=== PATIENT | female | born 1940 | race Caucasian/White ===

== ENCOUNTER 2018-02-18 09:55 | Observation (INO) | payer MEDICARE ==
[2018-02-16 15:07] VITALS: BP 98/53
[2018-02-16 15:08] LABS: BASOPHILS % (AUTO) 0.7 % (0.0-5.0); EOSINOPHILS % (AUTO) 2.8 % (0.0-8.0); HEMATOCRIT 40.7 % (36-48); LYMPHOCYTES % (AUTO) 24.1 % (21.0-51.0); MEAN CORPUSCULAR HGB CONC 33.6 g/dL (32.0-36.0); MEAN CORPUSCULAR VOLUME 95.2 fL (79-99); MONOCYTES % (AUTO) 7.1 % (3.0-13.0); NEUTROPHILS % (AUTO) 65.3 % (40.0-77.0); PLATELET COUNT (AUTO) 252 K/uL (130-400); RED BLOOD CELL COUNT(AUTO) 4.28 MIL/uL (4.00-5.50); RED CELL DISTRIBUTION WIDTH 12.5 % (11.0-15.5)
[2018-02-16 15:20] LABS: INR 0.98 (0.85-1.15); PARTIAL THROMBOPLASTIN TIME 27.7 SEC (26.3-35.5); PROTHROMBIN TIME 10.3 SEC (9.6-11.6)
[2018-02-16 15:24] LABS: CREATININE 0.7 mg/dL (0.5-1.5); POTASSIUM 4.9 mmol/L (3.5-5.1)
[2018-02-18] VITALS (18 sets, daily range): BP systolic 82–123; BP diastolic 36–68
[~2018-02-18] VITALS: Ht 163.8 cm; Wt 52.5 kg
[~2018-02-18 09:55] MED LIST: APIX5TAB PO; FLEC50TA3 PO; LEVO25TA4 PO; LORA10TA7 PO; MULTIVITAMIN PO; SACC250C9 PO; SODIUM CHLORIDE 0.9% 1000ML 1,000 ML IV SCH; VERA120C2 PO
[2018-02-18] MEDS ORDERED: PHENYLEPHRINE HCL 10 MG/ML 1ML VIAL IV ONE (11:46)
[2018-02-18] MEDS ORDERED: SUCCINYLCHOLINE 200MG/10ML SYR ONE (11:47)
[2018-02-18] MEDS ORDERED: ROCURONIUM 10MG/1ML SYR 10 MG/ML ML ONE (11:47)
[2018-02-18] MEDS ORDERED: PROPOFOL 10 MG/ML 20ML VIAL IV ONE (11:47)
[2018-02-18] MEDS ORDERED: FENTANYL CITRATE PF 50 MCG/1 ML 5ML AMP IV ONE (11:48)
[2018-02-18] MEDS ORDERED: EPHEDRINE SULFATE 50 MG/ML AMPULE ONE (11:58)
[2018-02-18] MEDS ORDERED: LIDOCAINE HCL 2% 20ML ONE (12:21)
[2018-02-18] MEDS ORDERED: HEPARIN SODIUM 1000UNIT/ML 10ML VIAL ONE ×2 (12:21→12:29)
[2018-02-18] MEDS ORDERED: ONDANSETRON HCL 4 MG/2 ML VIAL ONE ×2 (12:29→15:28)
[2018-02-18] MEDS ORDERED: ISOPROTERENOL HCL 0.2 MG/ML AMP/VIAL/BAG ONE ×2 (15:06→15:17)
[2018-02-18] MEDS ORDERED: PROTAMINE SULFATE 10 MG/ML 25ML VIAL IV ONE (15:26)
[2018-02-18] MEDS ORDERED: LIDOCAINE PF 2% 5ML ABBOJECT ONE (15:46)
[2018-02-18] MEDS ORDERED: GLYCOPYRROLATE 1 MG/5 ML SYRINGE ONE (15:57)
[2018-02-18] MEDS ORDERED: PANT40TA25 PO (16:27)
[2018-02-18] MEDS: PANTOPRAZOLE SODIUM 40 MG TABLET.DR PO SCH (16:30)
[2018-02-18] MEDS: APIXABAN 5 MG TABLET PO SCH (22:39)
[2018-02-19 04:00] VITALS: BP 93/55
[2018-02-19] MEDS ORDERED: LEVOTHYROXINE 25 MCG TABLET PO SCH (06:30)
[2018-02-19 08:01] VITALS: BP 92/55
[2018-02-19] MEDS: APIXABAN 5 MG TABLET PO SCH (08:27)
[2018-02-19] MEDS: PANTOPRAZOLE SODIUM 40 MG TABLET.DR PO SCH (08:27)
[2018-02-19] MEDS ORDERED: LORATADINE 10 MG TABLET PO SCH (09:00)
[2018-02-19 11:41] VITALS: BP 85/51
== END 2018-02-19 14:05 | disposition home or self-care (01) ==
LOC: DAH 09:55 → DAHIP 09:56 → 2DH 17:42
PROVIDERS: ADMIT Internal Medicine Pulmonary Disease; ATTEND Internal Medicine Pulmonary Disease
DX: I48.0 Paroxysmal atrial fibrillation (principal); E03.9 Hypothyroidism, unspecified; I73.00 Raynaud's syndrome without gangrene; Z79.01 Long term (current) use of anticoagulants; Z82.49 Family history of ischemic heart disease and other diseases of the circulatory system
CPT/HCPCS: 36415 ×2; 80048; 85025; 85347 ×5; 85610; 85730; 93005; 93613; 93622; 93623; 93656; 93657; 93662; A4215; A4344; A4649; C1730 ×2; C1731; C1732; C1893; C1894 ×4; G0378 ×28; J0330; J1644 ×3; J2001; J2370; J2405 ×2; J2704; J2720; J3010; J3490 ×5; J7030

== ENCOUNTER → 2019-11-29 | Outpatient (CLI) | payer MEDICARE ==
[~2019-11-29] MED LIST changes: -FLEC50TA3 PO; +PANT40TA25 PO; -SODIUM CHLORIDE 0.9% 1000ML 1,000 ML IV SCH; -VERA120C2 PO
== END | disposition home or self-care (01) ==
LOC: OIH 10:39
PROVIDERS: ATTEND Family Medicine
DX: R07.81 Pleurodynia (principal); M47.814 Spondylosis without myelopathy or radiculopathy, thoracic region; Z98.82 Breast implant status
CPT/HCPCS: 71100

== ENCOUNTER → 2020-04-10 | Outpatient (CLI) | payer MEDICARE ==
[~2020-04-10] MED LIST changes: -PANT40TA25 PO; +PANT40TA55 PO
[2020-04-10 09:29] LABS: BASOPHILS % (AUTO) 0.9 % (0.0-5.0); EOSINOPHILS % (AUTO) 2.2 % (0.0-8.0); LYMPHOCYTES % (AUTO) 28.2 % (21.0-51.0); MEAN CORPUSCULAR HEMOGLOBIN 31.4 pg (27.0-33.0); MEAN CORPUSCULAR HGB CONC 33.4 g/dL (32.0-36.0); MEAN CORPUSCULAR VOLUME 93.8 fL (79-99); NEUTROPHILS % (AUTO) 56.5 % (40.0-77.0); PLATELET COUNT (AUTO) 242 K/uL (130-400); RED BLOOD CELL COUNT(AUTO) 4.05 MIL/uL (4.00-5.50); RED CELL DISTRIBUTION WIDTH 12.2 % (11.0-15.5); WHITE BLOOD COUNT (AUTO) 4.7 K/uL (4.8-10.8)
[2020-04-10 09:42] LABS: INR 1.02 (0.85-1.15); PROTHROMBIN TIME 10.9 SEC (9.6-11.6)
[2020-04-10 09:49] LABS: CREATININE 0.6 mg/dL (0.5-1.5); POTASSIUM 4.4 mmol/L (3.5-5.1)
== END ==
LOC: EDSTATUS 08:00 → DAH 10:00
PROVIDERS: ATTEND Internal Medicine Cardiovascular Disease
DX: Z01.818 Encounter for other preprocedural examination (principal); I47.1 Supraventricular tachycardia; I48.0 Paroxysmal atrial fibrillation
CPT/HCPCS: 36415; 80048; 85025; 85610; 85730

== ENCOUNTER 2020-06-04 07:48 | Day surgery (SDC) | payer MEDICARE ==
[2020-05-31 10:27] LABS: BASOPHILS % (AUTO) 0.4 % (0.0-5.0); EOSINOPHILS % (AUTO) 1.7 % (0.0-8.0); HEMATOCRIT 39.5 % (36-48); LYMPHOCYTES % (AUTO) 24.6 % (21.0-51.0); MEAN CORPUSCULAR HEMOGLOBIN 30.4 pg (27.0-33.0); MEAN CORPUSCULAR HGB CONC 32.7 g/dL (32.0-36.0); MEAN CORPUSCULAR VOLUME 93.2 fL (79-99); MONOCYTES % (AUTO) 10.1 % (3.0-13.0); PLATELET COUNT (AUTO) 241 K/uL (130-400); RED BLOOD CELL COUNT(AUTO) 4.24 MIL/uL (4.00-5.50); RED CELL DISTRIBUTION WIDTH 12.5 % (11.0-15.5); WHITE BLOOD COUNT (AUTO) 4.6 K/uL (4.8-10.8)
[2020-05-31 10:42] LABS: CREATININE 0.6 mg/dL (0.5-1.5); POTASSIUM 3.9 mmol/L (3.5-5.1)
[2020-05-31 10:45] LABS: PROTHROMBIN TIME 10.9 SEC (9.6-11.6)
[2020-05-31 10:47] LABS: PARTIAL THROMBOPLASTIN TIME 26.7 SEC (26.3-35.5)
[2020-06-01 10:17] VITALS: BP 117/4
[~2020-06-04] VITALS: Ht 160 cm; Wt 49.6 kg
[2020-06-04] VITALS (9 sets, daily range): BP systolic 82–114; BP diastolic 52–81
[~2020-06-04 07:48] MED LIST changes: +APIX2.5T PO; -APIX5TAB PO; +DILT120C92 PO; +FLEC50TA3 PO; -LEVO25TA4 PO; +MULT-960 PO; -MULTIVITAMIN PO; -PANT40TA55 PO; -SACC250C9 PO; +VANCOMYCIN 1GM+NS 250ML 250 ML IV SCH; +VITAMIN D PO; +ZINC PO
[2020-06-04] MEDS ORDERED: SODIUM CHLORIDE 0.9% 1000ML 1,000 ML IV ONE (08:05)
[2020-06-04] MEDS ORDERED: ONDANSETRON HCL 4 MG/2 ML VIAL ONE (09:31)
[2020-06-04] MEDS ORDERED: BUPIVACAINE/PF 0.25% 30ML VIAL IJ ONE (09:31)
[2020-06-04] MEDS ORDERED: MIDAZOLAM HCL 1 MG/ML 2ML VIAL ONE (09:32)
[2020-06-04] MEDS ORDERED: FENTANYL CITRATE PF 50 MCG/1 ML 2ML VIAL ONE (09:32)
[2020-06-04] MEDS ORDERED: VANCOMYCIN 1GM+NS 250ML 500 ML IV ONE (09:33)
[2020-06-04] MEDS ORDERED: LIDOCAINE HCL 1% MDV 50ML VIAL ONE (09:33)
== END 2020-06-04 14:35 | disposition home or self-care (01) ==
LOC: DAH 07:48
PROVIDERS: ATTEND Internal Medicine Cardiovascular Disease
DX: I49.5 Sick sinus syndrome (principal); I48.19 Other persistent atrial fibrillation; G47.00 Insomnia, unspecified; I47.1 Supraventricular tachycardia; Z90.89 Acquired absence of other organs; Z90.710 Acquired absence of both cervix and uterus; Z90.49 Acquired absence of other specified parts of digestive tract; Z98.890 Other specified postprocedural states; Z79.899 Other long term (current) drug therapy; Z79.01 Long term (current) use of anticoagulants; Z82.49 Family history of ischemic heart disease and other diseases of the circulatory system; Z80.9 Family history of malignant neoplasm, unspecified; Z88.1 Allergy status to other antibiotic agents; Z88.0 Allergy status to penicillin; Z88.8 Allergy status to other drugs, medicaments and biological substances
CPT/HCPCS: 33208; 36415; 71045; 80048; 85025; 85610; 85730; 93005; A4215; A4216; A4221; A4222; A4223 ×3; A4606; A4663; A6258; A6402; C1785; C1898 ×2; J2250; J2405; J3010; J3370; J3490 ×2; J7030; 99156; 99157

== ENCOUNTER → 2022-09-18 | Outpatient (CLI) | payer MEDICARE ==
[~2022-09-18] MED LIST changes: +DILT120C78 PO; -DILT120C92 PO; -VANCOMYCIN 1GM+NS 250ML 250 ML IV SCH
== END | disposition home or self-care (01) ==
LOC: SHCH 10:48
PROVIDERS: ATTEND Internal Medicine Cardiovascular Disease
DX: I48.0 Paroxysmal atrial fibrillation (principal); I34.0 Nonrheumatic mitral (valve) insufficiency; Z95.0 Presence of cardiac pacemaker
CPT/HCPCS: 93306